=== PATIENT | female | born 1950 | race Caucasian/White ===

== ENCOUNTER 2017-01-22 21:22 | Emergency (ER) | payer OTHER, MEDICARE ==
[~2017-01-22] VITALS: Ht 157.5 cm; Wt 65.0 kg
[2017-01-22 23:13] LABS: HEMATOCRIT 39.9 % (36.0-46.0); MCH 29.9 PG (29.0-34.0); MCHC 33.6 G/DL (30.0-36.0); MCV 89.1 FL (83-99); MEAN PLAT.VOLUME 10.2 uM^3 (9.5-12.4); PLATELET COUNT 251 K/uL (156-360); RBC DIS.WIDTH-CV 11.9 % (11.8-14.6); RBC DIS.WIDTH-SD 38.3 % (39-53); RED BLOOD COUNT 4.48 M/uL (3.80-5.20); WHITE BLOOD COUNT 5.4 K/uL (4.1-10.2)
[2017-01-22 23:26] LABS: PROTHROMBIN TIME 10.3 (9.2-11.2); PTT 23.7 (25-32)
[2017-01-22 23:28] LABS: CHLORIDE 104 mEq/L (99-109); POTASSIUM 4.2 mEq/L (3.7-5.4); SODIUM 139 mEq/L (136-147)
[2017-01-22 23:30] LABS: GLUCOSE 90 mg/dL (70-99)
[2017-01-22 23:32] LABS: ANION GAP 13 MEQ/L (2-14); TOTAL BILIRUBIN 0.7 mg/dL (0.0-1.0)
[2017-01-22 23:34] LABS: ALKALINE PHOSPHATASE 53 IU/L (3-129); GFR ESTIMATE (CALCULATED) 48 mL/min/; TROP-I INTERPRETATION NEGATIVE; TROPONIN-I < 0.01 ng/mL (0.0-0.30)
[2017-01-22 23:35] LABS: UREA NITROGEN (BUN) 21 mg/dL (9-23)
[2017-01-22 23:38] LABS: LIPASE 29 U/L (1.0-51.0)
[2017-01-22 23:51] LABS: ADD MIUA? NO; BILIRUBIN NEGATIVE; BLOOD NEGATIVE; COLOR COLORLESS ((YELLOW)); GLUCOSE (STRIP) NEGATIVE; KETONES 5; LEUKOCYTES NEGATIVE; NITRITE NEGATIVE; PROTEIN (STRIP) NEGATIVE; SPECIFIC GRAVITY 1.006 (1.000-1.030); UCUL ADDED? NO; UROBILINOGEN 0.2 MG/DL (0.2-1.0)
[2017-01-23 01:51] VITALS: BP 161/97
== END 2017-01-23 01:39 | disposition home or self-care (01) ==
LOC: EME 21:22
PROVIDERS: Emergency Medicine
DX: I10 Essential (primary) hypertension (principal); R51 Headache
CPT/HCPCS: 70450; 80053; 81003; 83690; 84484; 85027; 85610; 85730; 93005; 99281; 99285; J0360; J7030

== ENCOUNTER 2017-07-23 15:21 | Emergency (ER) | payer OTHER, MEDICARE ==
[~2017-07-23] VITALS: Ht 157.5 cm; Wt 62.2 kg
[2017-07-23 16:13] LABS: HEMATOCRIT 42.2 % (36.0-46.0); MCH 29.5 PG (29.0-34.0); MCHC 33.4 G/DL (30.0-36.0); MCV 88.3 FL (83-99); MEAN PLAT.VOLUME 9.9 uM^3 (9.5-12.4); PLATELET COUNT 280 K/uL (156-360); RBC DIS.WIDTH-CV 11.6 % (11.8-14.6); RBC DIS.WIDTH-SD 37.5 % (39-53); RED BLOOD COUNT 4.78 M/uL (3.80-5.20); WHITE BLOOD COUNT 5.8 K/uL (4.1-10.2)
[2017-07-23 16:24] LABS: CHLORIDE 106 mEq/L (99-109); POTASSIUM 3.9 mEq/L (3.7-5.4)
[2017-07-23 16:25] LABS: MAGNESIUM 2.1 mg/dL (1.3-2.7); SODIUM 142 mEq/L (136-147)
[2017-07-23 16:26] LABS: GLUCOSE 98 mg/dL (70-99)
[2017-07-23 16:28] LABS: ANION GAP 10 MEQ/L (2-14)
[2017-07-23 16:30] LABS: GFR ESTIMATE (CALCULATED) 53 mL/min/
[2017-07-23 16:31] LABS: UREA NITROGEN (BUN) 16 mg/dL (9-23)
[2017-07-23 16:33] LABS: TROP-I INTERPRETATION NEGATIVE; TROPONIN-I < 0.01 ng/mL (0.0-0.30)
[2017-07-23 18:15] VITALS: BP 156/105
== END 2017-07-23 18:20 | disposition home or self-care (01) ==
LOC: EME 15:21
DX: I49.3 Ventricular premature depolarization (principal); R00.2 Palpitations; I10 Essential (primary) hypertension; K21.9 Gastro-esophageal reflux disease without esophagitis; E78.5 Hyperlipidemia, unspecified; Z88.5 Allergy status to narcotic agent
CPT/HCPCS: 71020; 80048; 83735; 84484; 85027; 93005; 99281; 99285; J7030